=== PATIENT | female | born 1995 | race African-American/Black ===

== ENCOUNTER → 2016-08-22 | Outpatient (CLI) | payer OTHER ==
[~2016-08-22] MED LIST: ACETAMINOPHEN325 MG PO; ADALAT CC60 MG PO; ADALAT CC90 MG PO; ASPIRIN (CHILDR81 MG PO; PRENATAL 1+1)(P1 TAB PO
== END | disposition disaster alternative care site (69) ==
LOC: GLAB 08:00
DX: Z36 Encounter for antenatal screening of mother (principal)

== ENCOUNTER 2016-08-27 11:37 | Observation (INO) | payer OTHER ==
[~2016-08-27] VITALS: Ht 162.6 cm; Wt 83.2 kg
--- NOTE | ~2016-08-27 | HP ---
PATIENT'S NAME: BHAVIK FERREIRA [facility] AGE: 20 Y [address] ROOM: [place] [id number] LOCATION: [facility] ADMIT DATE: 08/27/2016 History & Physical DISCHARGE DATE: FAMILY PHYSICIAN: PHYSICIAN, NO ATTENDING PHYSICIAN: ANDREW COLE DATE OF SERVICE: CHIEF COMPLAINT: Headache. HISTORY OF PRESENT ILLNESS: The patient is a 20-year-old, G1, with an intrauterine at 28 weeks 0 days, who was sent to Labor and Delivery today for evaluation for elevated blood pressure. The patient called to the clinic today reporting elevated blood pressures. She has chronic hypertension and takes 60 of Procardia XL at home. Her blood pressures are sometimes in the severe range. She also reported a severe headache causing nausea and vomiting. She was seen in clinic and her first blood pressure was noted to be in the severe range, the rest were elevated but not severe, but given her headache, a recommendation to be sent over to Labor and Delivery was made for observation to rule out superimposed preeclampsia versus chronic hypertension with an exacerbation. The patient was sent to Labor and Delivery, IV fluids were started, and she received 1000 mg of Tylenol, which improved her headache. The patient reports now that her headache is gone. She denies nausea, vomiting, chest pain, or shortness of breath. PAST MEDICAL HISTORY: 1. Chronic hypertension. 2. Asthma. 3. Seasonal allergies. PAST SURGICAL HISTORY: None. CUSH[employer] WORKER HISTORY: She is a G1. During this , the patient has moved 3 times. She was initially seen in [place], she then moved to [place], and now subsequently moved here near the family while her is deployed in [place]. This is also complicated by ventriculomegaly, for which she has seen a high-risk doctor in [place] as well as here in [place]. MEDICATIONS: 1. Procardia XL 60 mg. 2. vitamins. PATIENT'S NAME: BHAVIK FERREIRA [facility] AGE: 20 Y [address] ROOM: [place] [address] LOCATION: [facility] ADMIT DATE: 08/27/2016 History & Physical DISCHARGE DATE: FAMILY PHYSICIAN: PHYSICIAN, NO ATTENDING PHYSICIAN: ANDREW COLE 3. Aspirin 81 mg. 4. Pulmicort p.r.n. ALLERGIES: NO KNOWN MEDICAL ALLERGIES. FAMILY HISTORY: Noncontributory. SOCIAL HISTORY: Denies tobacco, alcohol, or drug use. REVIEW OF SYSTEMS: Negative except as noted in HPI. PHYSICAL EXAMINATION: VITAL SIGNS: On admission, blood pressure range ranging from 118 to 160 over 66 to 94 with most current blood pressure being 132/77 with a heart rate of 88, temperature of 98.1, and respirations of 16. GENERAL: She is alert and oriented, in no acute distress. HEART: Regular rate and rhythm. LUNGS: Clear to auscultation bilaterally. ABDOMEN: Soft, nontender, gravid. No right upper quadrant tenderness. heart tones 140, moderate variability, positive accelerations. No decelerations. [place], no contraction. LABORATORY DATA: Hemoglobin of 11.9, platelets 280,000. AST of 19, ALT of 12, LDH is 161, and uric acid is 3. ASSESSMENT: The patient is a 20-year-old G1 with intrauterine at 28 weeks 0 days with chronic hypertension, here for rule out chronic hypertension exacerbation versus preeclampsia. PLAN: We will complete a 24-hour urine. We will also see if we can obtain a 24-hour urine that she said at baseline in [place]. We will have the patient to receive an additional 30 mg of Procardia XL today which makes her total dose for today 90. Her initial blood pressure was in the severe range, but since they have been normal and laboratory work is normal and her headache is improved, I suspect this is just an exacerbation of chronic hypertension, and if this is the case, we will discharge her tomorrow. PATIENT'S NAME: BHAVIK FERREIRA [facility] AGE: 20 Y [address] ROOM: [place] [address] LOCATION: [facility] ADMIT DATE: 08/27/2016 History & Physical DISCHARGE DATE: FAMILY PHYSICIAN: PHYSICIAN, NO ATTENDING PHYSICIAN: ANDREW COLE MD ANEL CONTRERAS/loni /[id number] D: [id number] T: [id number] HISTORY & PHYSICAL
[2016-08-27] MEDS ORDERED: ADALAT CC60 MG PO (12:49)
[2016-08-27] MEDS ORDERED: ACETAMINOPHEN325 MG PO (12:49)
[2016-08-27] MEDS ORDERED: PRENATAL 1+1)(P1 TAB PO (12:49)
[2016-08-27] MEDS ORDERED: ASPIRIN (CHILDR81 MG PO (12:50)
[2016-08-28] MEDS ORDERED: ADALAT CC90 MG PO (07:22)
== END 2016-08-28 12:00 | disposition disaster alternative care site (69) ==
LOC: GOBS 11:37
PROVIDERS: ADMIT Obstetrics & Gynecology
DX: O10.013 Pre-existing essential hypertension complicating pregnancy, third trimester (principal); O99.513 Diseases of the respiratory system complicating pregnancy, third trimester; Z3A.28 28 weeks gestation of pregnancy
CPT/HCPCS: G0378; G0379; G0463; J2001; J7120